=== PATIENT | female | born 1980 | race Caucasian/White ===

== ENCOUNTER 2017-11-28 19:08 | Inpatient (IN) | payer SELFPAY ==
[~2017-11-28] VITALS: Ht 180.3 cm; Wt 98.5 kg
[2017-11-28 21:07] LABS: BASOPHILS % 0.4 % (0.0-1.0); EOSINOPHILS # (AUTO) 0.1 (0.0-0.4); EOSINOPHILS % 1.4 % (0.0-6.0); HEMATOCRIT 41.9 % (34.2-44.1); HEMOGLOBIN 13.3 g/dL (12.0-16.0); LYMPHOCYTES # (AUTO) 1.5 (1.0-3.2); LYMPHOCYTES % 17.5 % (18.0-39.1); MEAN CORPUSCULAR HEMOGLOBIN 27.3 pg (28-32); MEAN CORPUSCULAR HGB CONC 31.7 g/dL (31-35); MEAN CORPUSCULAR VOLUME 85.9 fL (81-99); MONOCYTES # (AUTO) 0.8 (0.2-0.8); NEUTROPHILS # (AUTO) 6.1 (2.1-6.9); NEUTROPHILS % 71.5 % (38.7-80.0); PLATELET COUNT 288 x10e3/uL (140-360); RED BLOOD COUNT 4.88 x10e6/uL (3.6-5.1); RED CELL DISTRIBUTION WIDTH 14.2 % (11.7-14.4)
[2017-11-28 21:08] LABS: BILIRUBIN,URINE NEGATIVE (NEGATIVE); CLARITY,URINE CLEAR (CLEAR); COLOR,URINE YELLOW (YELLOW); KETONES,URINE NEGATIVE (NEGATIVE); LEUKOCYTE ESTERASE ,URINE NEGATIVE (NEGATIVE); NITRITE,URINE NEGATIVE (NEGATIVE); PROTEIN,URINE DIPSTICK NEGATIVE (NEGATIVE); URINE UROBILINOGEN 0.2 mg/dL (0.2 - 1)
[2017-11-28 21:18] LABS: INR 0.9
[2017-11-28 21:19] LABS: PARTIAL THROMBOPLASTIN TIME 31.1 seconds (23.8-35.5)
[2017-11-28 21:21] LABS: BACTERIA,URINE FEW /HPF; EPITHELIAL CELLS,URINE FEW /LPF; MUCUS,URINE MODERATE (RARE)
[2017-11-28 21:28] LABS: ALANINE AMINOTRANSFERASE 17 IU/L (0-55); ALBUMIN 4.1 g/dL (3.5-5.0); ALKALINE PHOSPHATASE 66 IU/L (40-150); ANION GAP 15.2 mmol/L (8-16); BLOOD UREA NITROGEN 12 mg/dL (7-26); BUN/CREATININE RATIO 13 (6-25); CALCIUM 10.7 mg/dL (8.4-10.2); CARBON DIOXIDE 23 mmol/L (22-29); CHLORIDE 103 mmol/L (98-107); CREATININE, SERUM 0.89 mg/dL (0.57-1.11); EST GLOMERULAR FILTRATION RATE > 60 ML/MIN (60-); GLUCOSE 82 mg/dL (74-118); POTASSIUM 4.2 mmol/L (3.5-5.1); SODIUM 137 mmol/L (136-145)
[2017-11-28] MEDS: VANCOMYCIN 1GM/NS 250 ML 250 ML IV SCH ×4 (21:35→23:08)
[2017-11-28] MEDS ORDERED: CELEXA20 MG PO (21:50)
[2017-11-28] MEDS ORDERED: WELLBUTRIN SR150 MG PO (21:50)
[2017-11-28] MEDS ORDERED: TRAZODONE HCL50 MG PO (21:51)
[2017-11-28] MEDS ORDERED: LEVOTHYROXINE50 MCG PO (21:51)
[2017-11-28] MEDS ORDERED: SINGULAIR10 MG PO (21:51)
[2017-11-28] MEDS ORDERED: MORPHINE SULFATE 2 MG/ML SYR IV STA (22:18)
[2017-11-28] MEDS ORDERED: ONDANSETRON HCL INJ 2 MG/ML VIAL IV STA (22:18)
[2017-11-28] MEDS ORDERED: SODIUM CHLORIDE FLUSH 10 ML SYR INJ PRN (22:30)
[2017-11-28] MEDS ORDERED: VANCOMYCIN 1GM/NS 250 ML 250 ML IV SCH (22:30)
[2017-11-28 23:08] VITALS: BP 134/59
[2017-11-28 23:11] VITALS: BP 134/59
[2017-11-28 23:16] VITALS: BP 134/59
[2017-11-29] VITALS (7 sets, daily range): BP systolic 107–123; BP diastolic 60–72
[2017-11-29] MEDS: MORPHINE SULFATE 2 MG/ML SYR IV PRN ×3 (03:42→20:15)
[2017-11-29] MEDS: CITALOPRAM HYDROBROMIDE 20 MG TAB PO SCH (08:10)
[2017-11-29] MEDS: VANCOMYCIN 1GM/NS 250 ML 250 ML IV SCH ×2 (08:10→20:49)
[2017-11-29] MEDS: LEVOTHYROXINE SODIUM 50 MCG TAB PO SCH (08:10)
[2017-11-29] MEDS: BUPROPION HCL SR 150 MG TAB PO SCH ×2 (08:21→16:15)
--- NOTE | 2017-11-29 08:36 | History and Physical ---
CHIEF COMPLAINT: Redness and swelling of the leg. HISTORY OF PRESENT ILLNESS: The patient is a 37-year-old woman with a history of depression, hypothyroidism, and asthma. She noticed some redness and blistering of her medial thigh on the right side about 6 days ago. She received some antibiotics in the [facility] which helped initially, but yesterday the pain and redness worsened. She went to the ER and was found to have cellulitis. She was subsequently admitted. PAST MEDICAL HISTORY: 1. Hypothyroidism. 2. Asthma. 3. Depression. PAST SURGICAL HISTORY: Noncontributory. ALLERGIES: THE PATIENT IS ALLERGIC TO FLUCONAZOLE. SOCIAL HISTORY: There is no history of drinking or smoking. FAMILY HISTORY: Noncontributory. REVIEW OF SYSTEMS: No fever. No headache, no neck pain. No chest pain, no difficulty breathing, no cough. No abdominal pain. No nausea, vomiting. The patient has pain and swelling on the medial aspect of her thigh. She also complains of a vaginal yeast infection. She has no focal neurological complaints. PHYSICAL EXAMINATION: VITAL SIGNS: The patient is afebrile. The vital signs are stable. HEENT: Shows no facial swelling or erythema. The nasal mucosa is normal. The oropharynx is normal. LYMPHATIC: Shows no submandibular, cervical, or supraclavicular adenopathy. CARDIAC: Reveals a regular rate and rhythm with a normal S1 and S2. CHEST: Auscultation of lungs reveals clear breath sounds bilaterally. There is no wheezing. ABDOMEN: Soft and nontender. There is no rebound or guarding. EXTREMITIES: Shows some tenderness and erythema in the medial thigh on the right side. There is no purulent drainage. There is an area of redness. IMPRESSION: 1. Cellulitis of the leg. 2. Mild persistent asthma. 3. Hypothyroidism. 4. Depression. PLAN: 1. Patient will be started on IV antibiotics. 2. ID consultation. 3. Continue home medications. Job#: [id number]
[2017-11-29] MEDS ORDERED: CLOTRIMAZOLE 45 GM VG SCH (09:00)
[2017-11-29] MEDS: MICONAZOLE NITRATE 45 GM CR VG SCH ×2 (09:37→20:50)
[2017-11-29] MEDS: HYDROCODONE/APAP 5MG-325MG TAB PO PRN ×2 (10:34→17:26)
[2017-11-29] MEDS ORDERED: ALBUTEROL SULF 0.083% NEB SOLN 3 ML NEB NEB PRN (10:45)
[2017-11-29] MEDS ORDERED: ONDANSETRON HCL INJ 2 MG/ML VIAL IV PRN (11:15)
[2017-11-29] MEDS ORDERED: INFLUENZA VIRUS VAC SPLIT INJ 0.5 ML SYR IM NR (12:00)
--- NOTE | 2017-11-29 12:48 | Consultation ---
DATE OF CONSULTATION: November 29, 2017 REASON FOR CONSULTATION: Cellulitis. Thank you, Dr. Michael, for asking me to see this patient. HISTORY: The patient is a 37-year-old woman referred for cellulitis. She presented to the emergency department yesterday with progressive right thigh pain and redness for 8 days which formed a central black area with blister yesterday. She denies fever, chills, insect or spider bite. The patient noted a lesion a few days after working on her garden. In the emergency department, she was noted to have temperature of 98.7 degrees Fahrenheit, pulse 79, respiratory rate 17, blood pressure 146/91, and oxygen saturation 98% on room air. Initial laboratory studies showed white blood cell count of 8,480 and blood glucose 82. PAST MEDICAL HISTORY: Hypothyroidism, asthma, and anxiety and depression. PAST SURGICAL HISTORY: Noncontributory. ALLERGIES: FLUCONAZOLE. MEDICATIONS: The current antibiotic is vancomycin 1 gram IV q.12 hours. IMMUNIZATION: Patient has not received influenza vaccination. FAMILY HISTORY: Noncontributory. SOCIAL HISTORY: Patient claimed that she quit smoking cigarettes. She smoked 2 packs of cigarettes a day in the past. She denies alcohol or recreational drug use. REVIEW OF SYSTEMS: As per history of present illness. She reports improvement of redness since admission and management. PHYSICAL EXAMINATION VITALS: T-max 98.7, pulse 66, respiratory rate 16, blood pressure 107/62, weight 212 pounds. GENERAL: No acute distress and does not appear toxic. HEENT: Normocephalic. There is no icterus or injection of conjunctivae. There is no ear or nasal discharge. Moist oral mucosa. No pharyngeal erythema or exudate. NECK: Supple. No JVD. No lymphadenopathy or meningismus. LUNGS: Clear to auscultation bilaterally. HEART: S1 and S2. Regular. ABDOMEN: Soft and nontender. EXTREMITIES: There is erythema with central necrotic area and induration in the posterior right thigh. The is tenderness to palpation of the area. The dorsalis pedis and posterior tibial pulses are palpable. There is no edema, clubbing or cyanosis for the rest of the extremities. SKIN: As per extremities. SHERIFFS: Awake, alert and oriented to person, place, and time. Nonfocal. LABORATORY DATA: 10/28/2017, WBC 8,480, hemoglobin 13.3, platelets 288,000, neutrophils 71.5, lymphs 17.5, mono 9, eosinophil 1.4, basophils 0.4. BUN 12, creatinine 0.89, blood glucose 82. Wound culture is pending. Blood culture was collected for yet unknown indication. IMPRESSIONS 1. Right thigh cellulitis. 2. Hypothyroidism. 3. Asthma, stable. PLAN: Continue vancomycin as prescribed. Check vancomycin level. Administer influenza vaccination. Patient agrees. Job#: [id number] ROBERT
[2017-11-29] MEDS: MONTELUKAST SODIUM 10 MG TAB PO SCH (20:50)
[2017-11-29] MEDS: TRAZODONE HCL 50 MG TAB PO SCH (20:50)
[2017-11-30] VITALS (8 sets, daily range): BP systolic 118–131; BP diastolic 57–80
[2017-11-30 05:01] LABS: BASOPHILS % 0.6 % (0.0-1.0); EOSINOPHILS # (AUTO) 0.2 (0.0-0.4); EOSINOPHILS % 4.3 % (0.0-6.0); HEMATOCRIT 35.2 % (34.2-44.1); HEMOGLOBIN 11.4 g/dL (12.0-16.0); LYMPHOCYTES # (AUTO) 0.8 (1.0-3.2); MEAN CORPUSCULAR HEMOGLOBIN 27.6 pg (28-32); MEAN CORPUSCULAR HGB CONC 32.4 g/dL (31-35); MEAN CORPUSCULAR VOLUME 85.2 fL (81-99); MONOCYTES # (AUTO) 0.6 (0.2-0.8); MONOCYTES % 11.1 % (4.4-11.3); NEUTROPHILS # (AUTO) 3.8 (2.1-6.9); NEUTROPHILS % 69.8 % (38.7-80.0); PLATELET COUNT 194 x10e3/uL (140-360); RED BLOOD COUNT 4.13 x10e6/uL (3.6-5.1)
[2017-11-30] MEDS: HYDROCODONE/APAP 5MG-325MG TAB PO PRN ×2 (05:03→20:25)
[2017-11-30] MEDS: LEVOTHYROXINE SODIUM 50 MCG TAB PO SCH (05:03)
[2017-11-30 05:29] LABS: ALANINE AMINOTRANSFERASE 13 IU/L (0-55); ALBUMIN 3.4 g/dL (3.5-5.0); ALBUMIN/GLOBULIN RATIO 1.1 (0.8-2.0); ALKALINE PHOSPHATASE 52 IU/L (40-150); BLOOD UREA NITROGEN 12 mg/dL (7-26); BUN/CREATININE RATIO 14 (6-25); CALCIUM 9.4 mg/dL (8.4-10.2); CARBON DIOXIDE 25 mmol/L (22-29); CHLORIDE 105 mmol/L (98-107); CREATININE, SERUM 0.83 mg/dL (0.57-1.11); EST GLOMERULAR FILTRATION RATE > 60 ML/MIN (60-); GLUCOSE 102 mg/dL (74-118); SODIUM 139 mmol/L (136-145)
[2017-11-30] MEDS: CITALOPRAM HYDROBROMIDE 20 MG TAB PO SCH (08:55)
[2017-11-30] MEDS: BUPROPION HCL SR 150 MG TAB PO SCH ×2 (08:56→17:14)
[2017-11-30] MEDS: VANCOMYCIN 1GM/NS 250 ML 250 ML IV SCH ×2 (09:10→21:50)
[2017-11-30] MEDS ORDERED: MORPHINE SULFATE INJ 4 MG/ML INJ IV PRN ×2 (11:00)
--- NOTE | 2017-11-30 17:40 | Consultation ---
DATE OF CONSULTATION: November 30, 2017 CHIEF COMPLAINT: Right thigh infection. HISTORY OF PRESENT ILLNESS: The patient is a 37-year-old female, admitted for 1 week history of right thigh redness, swelling, and tenderness from a possible insect bite. The patient has been on antibiotics without fever or chills and the area of inflammation has subsided. She denies nausea or vomiting. PAST MEDICAL HISTORY: Significant for anxiety disorder, asthma, and hypothyroidism. SURGICAL HISTORY: Negative. ALLERGIES: PATIENT IS ALLERGIC TO DIFLUCAN. SOCIAL HABITS: She is a former smoker, but denied alcohol abuse. PHYSICAL EXAMINATION VITAL SIGNS: Stable, afebrile. GENERAL: She is awake and alert, in no apparent distress. HEENT: Sclerae nonicteric. NECK: Supple. LUNGS: Clear. HEART: Regular rate and rhythm. ABDOMEN: Soft, nontender. EXTREMITIES: Revealed a right medial thigh area of redness and indurations, measuring approximately 3 cm. Digital pressure on the area elicited, no drainage. LABORATORY DATA: The patient's white cell count is 5, hemoglobin 11. Creatinine of 0.8. ASSESSMENT: Right thigh soft tissue infection. There is residual inflammation and induration without abscess formation. PLAN: Continue antibiotics regimen. Local wound care with soap and water. Thank you for consultation. Job#: [id number] [facility]
[2017-11-30] MEDS: MICONAZOLE NITRATE 45 GM CR VG SCH (21:00)
[2017-11-30] MEDS: MONTELUKAST SODIUM 10 MG TAB PO SCH (21:50)
[2017-11-30] MEDS: TRAZODONE HCL 50 MG TAB PO SCH (21:50)
[2017-12-01 00:30] VITALS: BP 105/51
[2017-12-01 05:20] VITALS: BP 113/59
[2017-12-01] MEDS: LEVOTHYROXINE SODIUM 50 MCG TAB PO SCH (05:54)
[2017-12-01 08:15] VITALS: BP 120/62
[2017-12-01] MEDS: CITALOPRAM HYDROBROMIDE 20 MG TAB PO SCH (08:40)
[2017-12-01] MEDS: VANCOMYCIN 1GM/NS 250 ML 250 ML IV SCH (08:40)
[2017-12-01] MEDS: BUPROPION HCL SR 150 MG TAB PO SCH (08:40)
[2017-12-01 08:44] VITALS: BP 120/62
[2017-12-01] MEDS ORDERED: CLINDAMYCIN HC150 MG PO (09:06)
--- NOTE | 2017-12-02 01:44 | Discharge Summary ---
DISCHARGE DIAGNOSES 1. Cellulitis with associated erythema. 2. Anemia, unspecified. CONSULTING PHYSICIANS 1. Dr. Chan of infectious disease. 2. Dr. Laureano of general surgery. HISTORY OF PRESENT ILLNESS: The patient is a 37-year-old woman. About a week prior to admission, she noticed some swelling and erythema in the medial aspect of her right thigh. She received some antibiotics through the [facility] that helped initially but then stopped working. On the night prior to admission, her area of erythema and swelling became worse. HOSPITAL COURSE: The patient was admitted. She received IV antibiotics. She also had some spontaneous drainage from a small abscess in the area of cellulitis. She was seen in consultation by infectious disease and general surgery. Her erythema improved. She felt much better. She did not have any fevers. She was eager to go home at the time of discharge. DISPOSITION: Discharged home with oral clindamycin. FOLLOW-UP: Followup in the [facility]. Job#: [id number] LPA
== END 2017-12-01 10:50 | disposition home or self-care (01) | DRG 603 ==
LOC: ER 19:08 → ERHOLD 22:42 → IMCU 22:49 → OBSVTOIN 11-30 13:34
PROVIDERS: ADMIT Internal Medicine Critical Care Medicine; ATTEND Internal Medicine Critical Care Medicine
DX: L03.115 Cellulitis of right lower limb (principal); S70.361A Insect bite (nonvenomous), right thigh, initial encounter; D64.9 Anemia, unspecified; E03.9 Hypothyroidism, unspecified; J45.30 Mild persistent asthma, uncomplicated; F32.9 Major depressive disorder, single episode, unspecified; F41.9 Anxiety disorder, unspecified; F17.210 Nicotine dependence, cigarettes, uncomplicated
CPT/HCPCS: 36415; 80053; 80202; 81001; 83605; 85025; 85610; 85730; 87040; 87071; 87205; 96367; 99284; G0378; J2270; J2405; J3370

== ENCOUNTER 2019-06-05 13:38 | Emergency (ER) | payer SELFPAY ==
[~2019-06-05] VITALS: Ht 180.3 cm; Wt 98.4 kg
[~2019-06-05 13:38] MED LIST: CELEXA20 MG PO; CLINDAMYCIN HC150 MG PO; LEVOTHYROXINE50 MCG PO; SINGULAIR10 MG PO; TRAZODONE HCL50 MG PO; WELLBUTRIN SR150 MG PO
[2019-06-05] MEDS ORDERED: ALBUTEROL SULF 0.083% NEB SOLN 3 ML NEB NEB STA (13:40)
[2019-06-05] MEDS ORDERED: IPRATROPIUM BROMIDE 0.02% 2.5 ML NEB NEB STA (13:40)
[2019-06-05] MEDS ORDERED: METHYLPREDNISOLONE SOD SUCC 125 MG/2ML VIAL IV STA (13:40)
[2019-06-05] MEDS ORDERED: MAGNESIUM SULFATE 2GM/50ML 50 ML IV ONE (14:00)
--- NOTE | 2019-06-05 15:54 | Diagnostic Imaging Report ---
EXAM: CHEST SINGLE (PORTABLE) DATE: 06/05/2019 1:41 PM INDICATION: Asthma attack COMPARISON: None FINDINGS: Monitoring leads overlie the chest. The trachea is midline. The lungs are symmetrically expanded without evidence for large focal consolidation, pneumothorax, or significant pleural effusion. The cardiomediastinal silhouette and pulmonary vasculature are within normal limits. No acute osseous abnormality is identified. The surrounding soft tissues are unremarkable. IMPRESSION: No acute cardiopulmonary process identified. Signed by: Dr. Richar Quezada MD on 06/05/2019 3:50 PM
== END 2019-06-05 16:00 | disposition home or self-care (01) ==
LOC: ER 13:38
DX: J45.50 Severe persistent asthma, uncomplicated (principal); R05 Cough; E03.9 Hypothyroidism, unspecified; F41.9 Anxiety disorder, unspecified
CPT/HCPCS: 71045; 99284; J2930; J3475